=== PATIENT | female | born 1980 | race Caucasian/White ===

== ENCOUNTER 2021-08-22 12:21 | Emergency (ER) | payer OTHER, BC ==
[2021-08-22] MEDS ORDERED: Ketorolac Tromethamine 30 MG/ML VIAL ONE (13:37)
[2021-08-22] MEDS ORDERED: Dexamethasone 10 MG/ML VIAL ONE ×2 (13:37→13:40)
[2021-08-22] MEDS ORDERED: Metoclopramide HCl 10 MG/2 ML VIAL ONE (13:37)
[2021-08-22] MEDS ORDERED: Acetaminophen 500 MG TAB ONE (13:37)
== END 2021-08-22 13:59 | disposition home or self-care (01) ==
LOC: BURERS 12:21
DX: R51.9 Headache, unspecified (principal); E05.90 Thyrotoxicosis, unspecified without thyrotoxic crisis or storm; V44.5XXA Car driver injured in collision with heavy transport vehicle or bus in traffic accident, initial encounter; Z79.899 Other long term (current) drug therapy
CPT/HCPCS: 96372; 99283; J1100; J1885; J2765

== ENCOUNTER 2021-12-13 20:43 | Emergency (ER) | payer BC ==
[2021-12-14 18:15] LABS: SARS-CoV-2 PCR by NAA DETECTED (NotDetected)
== END 2021-12-13 21:30 | disposition home or self-care (01) ==
LOC: BURERS 20:43
DX: U07.1 COVID-19 (principal); E05.90 Thyrotoxicosis, unspecified without thyrotoxic crisis or storm; Z87.891 Personal history of nicotine dependence; Z79.899 Other long term (current) drug therapy
CPT/HCPCS: 87804; 99283; U0003; U0005

== ENCOUNTER 2021-12-15 13:45 | Emergency (ER) | payer BC | END 2021-12-15 15:18 | disposition home or self-care (01) | LOC: BURERS 13:45 | DX: U07.1 COVID-19 (principal); E03.9 Hypothyroidism, unspecified; Z87.891 Personal history of nicotine dependence; Z79.899 Other long term (current) drug therapy | CPT/HCPCS: 71045; 93005 ==

== ENCOUNTER 2022-02-12 16:47 | Emergency (ER) | payer BC ==
[2022-02-12] MEDS ORDERED: Sulfameth/Trimethoprim DS 800-160mg TAB ONE (17:35)
[2022-02-12] MEDS ORDERED: Dexamethasone 4 MG TAB ONE (17:35)
== END 2022-02-12 17:45 | disposition home or self-care (01) ==
LOC: BURERS 16:47
DX: J01.90 Acute sinusitis, unspecified (principal); E05.90 Thyrotoxicosis, unspecified without thyrotoxic crisis or storm; Z87.891 Personal history of nicotine dependence
CPT/HCPCS: 99283; J8540

== ENCOUNTER 2022-03-06 23:13 | Emergency (ER) | payer BC, OTHER ==
[2022-03-06] MEDS ORDERED: Lidocaine 1% PF 5 ML VIAL ONE (23:38)
== END 2022-03-07 00:08 | disposition home or self-care (01) ==
LOC: BURERS 23:13
DX: S61.311A Laceration without foreign body of left index finger with damage to nail, initial encounter (principal); E05.90 Thyrotoxicosis, unspecified without thyrotoxic crisis or storm; W26.0XXA Contact with knife, initial encounter; Z87.891 Personal history of nicotine dependence
CPT/HCPCS: 12001

== ENCOUNTER 2023-03-13 20:15 | Emergency (ER) | payer BC, OTHER | END 2023-03-13 21:30 | disposition home or self-care (01) | LOC: BURERS 20:15 | DX: J01.90 Acute sinusitis, unspecified (principal); B96.89 Other specified bacterial agents as the cause of diseases classified elsewhere; J02.9 Acute pharyngitis, unspecified; E03.9 Hypothyroidism, unspecified; Z87.891 Personal history of nicotine dependence; Z79.899 Other long term (current) drug therapy | CPT/HCPCS: 87081; 87430; 99283 ==

== ENCOUNTER 2023-04-04 18:04 | Emergency (ER) | payer OTHER | END 2023-04-04 18:40 | disposition home or self-care (01) | LOC: BURERS 18:04 | DX: H92.01 Otalgia, right ear (principal); Z87.891 Personal history of nicotine dependence; E05.90 Thyrotoxicosis, unspecified without thyrotoxic crisis or storm; G43.909 Migraine, unspecified, not intractable, without status migrainosus | CPT/HCPCS: 99283 ==

== ENCOUNTER 2024-01-27 01:15 | Emergency (ER) | payer OTHER, SELFPAY | END 2024-01-27 01:53 | disposition home or self-care (01) | LOC: BURERS 01:15 | DX: S09.93XA Unspecified injury of face, initial encounter (principal); V89.2XXA Person injured in unspecified motor-vehicle accident, traffic, initial encounter | CPT/HCPCS: 99283 ==

== ENCOUNTER 2024-09-01 18:52 | Emergency (ER) | payer OTHER ==
[2024-09-01] MEDS ORDERED: Cephalexin 250 MG CAP ONE (19:15)
== END 2024-09-01 19:20 | disposition home or self-care (01) ==
LOC: BURERS 18:52
DX: L03.211 Cellulitis of face (principal); Z87.891 Personal history of nicotine dependence
CPT/HCPCS: 99283